=== PATIENT | female | born 1955 | race Caucasian/White ===

== ENCOUNTER 2022-03-17 17:55 | Inpatient (IN) | payer OTHER, MEDICARE ==
[~2022-03-17] VITALS: Ht 157.5 cm; Wt 110.9 kg
[2022-03-17] MEDS ORDERED: magnesium hydroxide 30ml (MOM) UD suspension PO PRN (23:55)
[2022-03-17] MEDS ORDERED: loperamide 2mg capsule PO PRN (23:55)
[2022-03-17] MEDS ORDERED: acetaminophen 325mg tablet PO PRN ×2 (23:55)
[2022-03-17] MEDS ORDERED: mag hydrox/Alum hydrox/simeth 30ml oral suspension PO PRN (23:55)
[2022-03-18] MEDS ORDERED: ALB0.5UD IH (00:22)
[2022-03-18] MEDS ORDERED: ASPI-1265 PO (00:22)
[2022-03-18] MEDS ORDERED: ACET-1025 PO (00:22)
[2022-03-18] MEDS ORDERED: LOSA25TA96 PO (00:22)
[2022-03-18] MEDS ORDERED: BUPR200T2 PO (00:22)
[2022-03-18] MEDS ORDERED: MULT-215 PO (00:22)
[2022-03-18] MEDS ORDERED: IBUP-1985 PO (00:22)
[2022-03-18] MEDS ORDERED: ALEN70TA60 PO (00:22)
[2022-03-18] MEDS ORDERED: BECL7.3A INH (00:22)
[2022-03-18] MEDS ORDERED: MELO-102 PO (00:22)
[2022-03-18] MEDS ORDERED: ESOM20CA PO (00:22)
[2022-03-18 00:55] VITALS: BP 174/59
--- NOTE | 2022-03-18 01:02 | NUR ---
Admit Note: Pt arrived to [facility] via EMS as direct admit 03/17/22 @2145. Pt was placed on a 5150 due to walking to the ER and reporting that she had taken 500 ibuprofen in an attempt to kill herself. Pt reports she is feeling depressed and experience grief since her son suicided in 04/2021. Pt reports she has s/i every 6 months or so but this is the first time she has acted on "impulse" to do it. Pt has hx of depression, gerd, osteoporosis, asthma r/t allergies. Pt tox screen was negative, but pt admits to drinking on "thursday and thursday nights, and maybe one night a week." Pts KATEY .142 when she arrived at ER.
[2022-03-18 07:52] VITALS: BP 182/75
[2022-03-18 08:25] LABS: CHOL/HDL RATIO 2.9 (0.00-4.99); CHOLESTEROL 137 MG/DL (0-200); HDL CHOLESTEROL 48 MG/DL (35-60); LDL CHOLESTEROL 76 MG/DL (50-100); TRIGLYCERIDES 105 MG/DL (20-135)
[2022-03-18 08:27] LABS: HEMOGLOBIN A1C 5.8 % (4.5-6.2)
[2022-03-18] MEDS ORDERED: docusate sod 100mg capsule PO ONE (10:27)
--- NOTE | 2022-03-18 15:57 | NUR ---
Case management Attempted psycho-social assessment at approximately 11 am: Client was deeply asleep. At snack time, client chatted briefly with this policy writer, and this policy writer felt client looked well-rested. Plan is to complete assessment AM AM of 03/19/22.
[2022-03-18] MEDS ORDERED: non-formulary drug (Alendronate Sodium* (Fosamax*) 1 TAB) PO SCH (17:15)
[2022-03-18] MEDS ORDERED: albuterol 2.5 MG/3 ML nebule NEB PRN (17:15)
--- NOTE | 2022-03-18 17:51 | NUR ---
NURSING PROGRESS NOTE Problem: Pt was placed on a 5150 due to walking to the ER and reporting that she had taken 500 ibuprofen in an attempt to kill herself. Pt reports she is feeling depressed and experience grief since her son suicided in 04/2021. Pt reports she has s/i every 6 months or so but this is the first time she has acted on "impulse" to do it. Intervention: Provide medication administration & medication management; maintained a safe & supportive environment; clear & simple instructions; direction & encouragement regarding performance of ADLs; monitored behaviors & maintained clear boundaries; Patient physical assessment & 1:1 patient interview; therapeutic conversation & active listening; patient education & monitoring. maintained Q 15min safety checks. Response: RN received pt. asleep in bed at start of shit. Pt. awoke for breakfast and took AM medication. Pt. went back to her room and slept. Pt. c/o constipation and reported hard stool. Pt passed large, formed, black BM. Pt. still requested bowel care and received MOM and Colace. 1:1 done at bedside, pt. denies SI/HI, A/V hallucinations and reports feeling hopeful for the future. Pt. reports regret about her SA and says she wants to be there for her family, pt. does appear depressed though with flat affect and isolates to her room most of the day. Plan: Pt is in need of crisis interruption with medication management and monitoring until stable and no longer a danger to self.
[2022-03-18 19:41] VITALS: BP 173/72
[2022-03-18] MEDS ORDERED: BUPROPION HCL 200 MG PO SCH (20:00)
[2022-03-18] MEDS: docusate sod 100mg capsule PO SCH (20:59)
--- NOTE | 2022-03-18 21:58 | NUR ---
NURSING PROGRESS NOTE Problem: Pt was placed on a 5150 due to walking to the ER and reporting that she had taken 500 ibuprofen in an attempt to kill herself. Pt reports she is feeling depressed and experience grief since her son suicided in 04/2021. Pt reports she has s/i every 6 months or so but this is the first time she has acted on "impulse" to do it. Intervention: Provide medication administration & medication management; maintained a safe & supportive environment; clear & simple instructions; direction & encouragement regarding performance of ADLs; monitored behaviors & maintained clear boundaries; Patient physical assessment & 1:1 patient interview; therapeutic conversation & active listening; patient education & monitoring. maintained Q 15min safety checks. Response: Pt was in the group room at change of shift. Pt denies s/i, denies a/vh. She is concerned about getting an inhaler. Pt states her day was ok and she is just feeling tired tonight. Provider dc'd her Wellbutrin. Pt had colace at HS. Pt mentions having a large hard BM on day shift and is now feeling better. Pt had a snack in the group room. RT was paged and patient was given a breathing treatment before going to bed. Plan: Pt is in need of crisis interruption with medication management and monitoring until stable and no longer a danger to self.
[2022-03-19] MEDS: docusate sod 100mg capsule PO SCH ×2 (07:22→20:26)
[2022-03-19] MEDS: multivitamins, therapeutics tablet PO SCH (07:22)
[2022-03-19] MEDS: losartan 50mg tablet PO SCH (07:22)
[2022-03-19] MEDS: ESCITALOPRAM OXALATE 5 MG TABLET PO SCH (07:23)
[2022-03-19 07:30] VITALS: BP 135/46
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
[2022-03-19] MEDS ORDERED: ibuprofen tablet 400 MG TABLET PO PRN (13:05)
--- NOTE | 2022-03-19 18:06 | NUR ---
NURSING PROGRESS NOTE Problem: Pt was placed on a 5150 due to walking to the ER and reporting that she had taken 500 ibuprofen in an attempt to kill herself. Pt reports she is feeling depressed and experience grief since her son suicided in 04/2021. Pt reports she has s/i every 6 months or so but this is the first time she has acted on "impulse" to do it. Intervention: Provide medication administration & medication management; maintained a safe & supportive environment; clear & simple instructions; direction & encouragement regarding performance of ADLs; monitored behaviors & maintained clear boundaries; Patient physical assessment & 1:1 patient interview; therapeutic conversation & active listening; patient education & monitoring. maintained Q 15min safety checks. Response: RN received pt. asleep in bed at start of shift. Pt. awoke for breakfast and took AM medications. 1:1 done at bedside, pt. denies SI/HI, A/V hallucinations. Pt. states, I feel like my body is still recovering from the suicide attempt. Pt. reports more normal BM this morning. Pt. reports feeling hopeful for the future. Pt. placed on voluntary status. Pt. c/o swelling in her ankles and feet bilaterally, RN assessed pt. and pt. displayed +2 non-pitting edema. RN encouraged pt. to raise her feet while lying in bed. In the afternoon pt. observed watching TV and socializing with peers in the community room. Pt. report she will discharge 03/20, driving back to [place] with her . Plan: Pt is in need of crisis interruption with medication management and monitoring until stable and no longer a danger to self.
[2022-03-19 19:00] VITALS: BP 197/58
--- NOTE | 2022-03-20 05:34 | NUR ---
NURSING PROGRESS NOTE Problem: Pt was placed on a 5150 due to walking to the ER and reporting that she had taken 500 ibuprofen in an attempt to kill herself. Pt reports she is feeling depressed and experience grief since her son suicided in 04/2021. Pt reports she has s/i every 6 months or so but this is the first time she has acted on "impulse" to do it. Intervention: Provide medication administration & medication management; maintained a safe & supportive environment; clear & simple instructions; direction & encouragement regarding performance of ADLs; monitored behaviors & maintained clear boundaries; Patient physical assessment & 1:1 patient interview; therapeutic conversation & active listening; patient education & monitoring. maintained Q 15min safety checks. Response: Patient was observed sitting in community room eating dinner at shift change. Patient stayed in community room for majority of shift socializing with others and watching tv. Patient stated she was not feeling suicidal but not quite ready to go home. Patient blood pressure was 197/58 during vitals. Patient took all night medications including blood pressure medications. Blood pressure was rechecked an hour later and read 186/64. Patient continues to be monitored. Plan: Pt is in need of crisis interruption with medication management and monitoring until stable and no longer a danger to self.
[2022-03-20 07:00] VITALS: BP 107/47
[2022-03-20] MEDS: docusate sod 100mg capsule PO SCH (07:08)
[2022-03-20 07:09] VITALS: BP_SYST 205
[2022-03-20] MEDS: losartan 50mg tablet PO SCH (07:09)
[2022-03-20] MEDS: multivitamins, therapeutics tablet PO SCH (07:10)
[2022-03-20] MEDS: ESCITALOPRAM OXALATE 5 MG TABLET PO SCH (07:10)
--- NOTE | 2022-03-20 09:08 | NUR ---
Spoke to Lizabeth's , Richard ([phone]). He reported he is still in town and can take her home upon discharge. He reported their sons are planning to come up on Sat if she is still here and can take her home. Scheduled Lizabeth's follow up with her primary care doctor and also with [facility] for therapy and a psychiatrist. LUDWIN Carreon
--- NOTE | 2022-03-20 10:39 | NUR ---
DISCHARGE PLAN Lizabeth reported she would like to discharge today. Her is still in town and can pick her up after [address] her home. She denied any current SI and feels comfortable returning home. She has follow up scheduled with her primary and a psychiatrist. NORMA Carreon
[2022-03-20] MEDS ORDERED: ESCI20TA39 PO (13:00)
--- NOTE | 2022-03-20 15:28 | NUR ---
NURSING PROGRESS NOTE Problem: Pt was placed on a 5150 due to walking to the ER and reporting that she had taken 500 ibuprofen in an attempt to kill herself. Pt reports she is feeling depressed and experience grief since her son suicided in 04/2021. Pt reports she has s/i every 6 months or so but this is the first time she has acted on "impulse" to do it. Intervention: Provide medication administration & medication management; maintained a safe & supportive environment; clear & simple instructions; direction & encouragement regarding performance of ADLs; monitored behaviors & maintained clear boundaries; Patient physical assessment & 1:1 patient interview; therapeutic conversation & active listening; patient education & monitoring. maintained Q 15min safety checks. Response: Received pt. asleep in bed at start of shift. Patient is pleasant and cooperative with care; compliant with medication. Pt expressed to this [employer] PAR[employer]OFESSION[employer] during 1:1 SI/HI, -AV/H, no apparent delusions expressed this shift. Pt requested PRN Tylenol for generalized back pain. Ate breakfast in community room. Ambulating with peers on unit. Pt. reports feeling hopeful for the future. Pt. placed on voluntary status. Pt. c/o swelling in her ankles and feet bilaterally, RN assessed pt. and pt. displayed +2 non-pitting edema. RN encouraged pt. to raise her feet while lying in bed. In the afternoon pt. observed watching TV and socializing with peers in the community room. Pt. report she will discharge 03/20, driving back to [place] with her . Pt discharged from unit at 03/20/2022 @ 1340. Plan: Pt is in need of crisis interruption with medication management and monitoring until stable and no longer a danger to self.
== END 2022-03-20 13:42 | disposition home or self-care (01) | DRG 885 ==
LOC: ADULT MH 17:55
PROVIDERS: ADMIT Psychiatry & Neurology Psychiatry; ATTEND Psychiatry & Neurology Psychiatry
DX: F33.2 Major depressive disorder, recurrent severe without psychotic features (principal); Z68.41 Body mass index [BMI] 40.0-44.9, adult; T39.312A Poisoning by propionic acid derivatives, intentional self-harm, initial encounter; F43.20 Adjustment disorder, unspecified; E66.01 Morbid (severe) obesity due to excess calories; F41.9 Anxiety disorder, unspecified; F12.90 Cannabis use, unspecified, uncomplicated; K21.9 Gastro-esophageal reflux disease without esophagitis; I10 Essential (primary) hypertension; J44.9 Chronic obstructive pulmonary disease, unspecified; Y92.89 Other specified places as the place of occurrence of the external cause; Z79.51 Long term (current) use of inhaled steroids; Z79.82 Long term (current) use of aspirin; Z79.83 Long term (current) use of bisphosphonates; Z87.891 Personal history of nicotine dependence; Z98.51 Tubal ligation status; Z79.899 Other long term (current) drug therapy
CPT/HCPCS: 36415; 80061; 83036; 87081; 94640; 94760